=== PATIENT | female | born 1960 | race Caucasian/White ===

== ENCOUNTER → 2019-06-01 09:48 | Outpatient (CLI) | payer OTHER, SELFPAY ==
--- NOTE | ~2019-06-01 | MM_ITS ---
EXAMINATION: MM screening leanna BI w juan HISTORY: Screening mammogram, family history of breast cancer in her sister. TECHNIQUE: Craniocaudal and mediolateral oblique 3-D tomosynthesis images were obtained and synthetic 2-D images were generated. CAD analysis was submitted and interpreted. COMPARISON: 12/02/2017, 11/10/2016, 10/24/2015 BREAST PARENCHYMAL COMPOSITION: The breasts are extremely dense, which lowers the sensitivity of mamm ography. FINDINGS: Scattered benign-appearing calcifications are present. There is no evidence of suspicious m ass, calcification, or architectural distortion to suggest malignancy in either breast. There has bee n no suspicious interval change. IMPRESSION: 1. No mammographic evidence of malignancy. 2. Recommend routine screening mammography in one year. BI-RADS Category 2: Benign finding(s). Reviewed, dictated and finalized at location A. STONE SETTER
== END ==
PROVIDERS: Visit Provider Nurse Practitioner
DX: Z12.31 Encounter for screening mammogram for malignant neoplasm of breast (principal)
CPT/HCPCS: 77063; 77067

== ENCOUNTER 2020-02-29 13:52 | Outpatient (CLI) | payer OTHER, SELFPAY | END 2020-02-29 13:53 | disposition home or self-care (01) | LOC: ANHAUDIO 13:54 | PROVIDERS: Visit Provider Otolaryngology | DX: H69.82 Other specified disorders of Eustachian tube, left ear (principal); H93.8X9 Other specified disorders of ear, unspecified ear | CPT/HCPCS: 92552; 92556; 92567 ==

== ENCOUNTER → 2020-08-22 12:52 | Outpatient (CLI) | payer OTHER, SELFPAY ==
--- NOTE | ~2020-08-22 | MM_ITS ---
EXAMINATION: MM screening leanna BI w juan HISTORY: Screening mammogram, family history of breast cancer in her sister. TECHNIQUE: Craniocaudal and mediolateral oblique 3-D tomosynthesis images were obtained and synthetic 2-D images were generated. CAD analysis was submitted and interpreted. COMPARISON: 06/01/2019, 12/02/2017, 11/10/2016 BREAST PARENCHYMAL COMPOSITION: The breasts are extremely dense, which lowers the sensitivity of mamm ography. FINDINGS: Scattered benign-appearing calcifications are present. There is no evidence of suspicious m ass, calcification, or architectural distortion to suggest malignancy in either breast. There has bee n no suspicious interval change. IMPRESSION: 1. No mammographic evidence of malignancy. 2. Recommend routine screening mammography in one year. BI-RADS Category 2: Benign finding(s). Reviewed, dictated and finalized at location A.
== END ==
PROVIDERS: Visit Provider Nurse Practitioner
DX: Z12.31 Encounter for screening mammogram for malignant neoplasm of breast (principal)
CPT/HCPCS: 77063; 77067

== ENCOUNTER → 2021-04-17 07:41 | Outpatient (CLI) | payer OTHER, SELFPAY ==
--- NOTE | ~2021-04-17 | US_ITS ---
EXAMINATION: US thyroid DATE: 04/17/2021 08:13 INDICATION: Hypothyroidism TECHNIQUE: Multiple ultrasound images of the thyroid were obtained. COMPARISON: None. FINDINGS: The right thyroid lobe measures 5.4 x 1.5 x 1.5 cm. The left thyroid lobe measures 5.7 x 1.2 x 1.3 c m. There is normal echotexture, echogenicity but with diffuse increased vascular flow throughout the thyroid gland. 1.1 cm wider than tall solid hypoechoic nodule with smooth margins and without echogen ic foci in the right thyroid lobe (TI-RADS 4, moderately suspicious , FNA if >=1.5 cm, annual followu p is >=1 cm). Additional 1.2 cm solid mildly hyperechoic nodule along the superficial margin of the h ypoechoic nodule which is also wider than tall with ill-defined margins (TI-RADS 3, mildly suspicious , FNA if >=2.5 cm, annual followup is >=1.5 cm). Similar 3 mm hyperechoic TI RADS 3 nodule at the le ft side of the thyroid isthmus. 1.4 cm TI-RADS 4 predominantly solid hypoechoic wider than tall nodul e with smooth margins and without echogenic foci in the left thyroid lobe. IMPRESSION: 1. Bilateral <1.5 cm TI RADS 4 thyroid nodules for which annual follow-up would be recommended. Reviewed, dictated and finalized at location B. GHTS ANALYST
== END ==
PROVIDERS: PCP Family Medicine Sports Medicine; Visit Provider Nurse Practitioner
DX: E04.1 Nontoxic single thyroid nodule (principal); E03.9 Hypothyroidism, unspecified
CPT/HCPCS: 76536

== ENCOUNTER 2021-10-30 19:59 | Emergency (ER) | payer OTHER, SELFPAY ==
--- NOTE | ~2021-10-30 | CT_ITS ---
EXAMINATION: CT abdomen pelvis wo con DATE: 10/30/2021 21:23 INDICATION: Left flank pain. TECHNIQUE: Computed tomography (CT) of the abdomen and pelvis was performed without intravenous contr ast. Automated exposure control and iterative reconstruction technique were employed. The dose-length product was 163.01 mGy-cm. COMPARISON: CT abdomen and pelvis 06/25/2009 FINDINGS: The visualized portions of the lung bases demonstrate minimal atelectasis. No pleural effus ion. The heart size is normal. No pericardial effusion. There is a 12 mm cyst in the liver. The gallb ladder, spleen, pancreas, adrenal glands, and right kidney are normal. There are two 3 mm stones in l eft kidney. There is mild left hydronephrosis and hydroureter. There is a 3 mm stone in distal left u reter. There are no dilated loops of bowel. The appendix is normal. There is a small sliding hiatal h ernia. There are no pathologically enlarged lymph nodes. There is no free intraperitoneal fluid. Ther e is mild lumbar spondylosis. IMPRESSION: 1. 3 mm stone in distal left ureter with mild left hydronephrosis and hydroureter. 2. Small nonobstructing left kidney stones. Reviewed, dictated and finalized at location A. IMPRESSION: 1. 3 mm stone in distal left ureter with mild left hydronephrosis and hydrouret er. 2. Small nonobstructing left kidney stones.
[2021-10-30 20:26] VITALS: BP 115/66; PULSE 70; RESP 18; TEMP 36.5; O2SAT 99
--- NOTE | 2021-10-30 21:14 | ED.ABDPAIN ---
HPI - Abdominal Pain General Chief Complaint: Abdominal Pain Stated Complaint: left flank pain Time Seen by Provider: 10/30/21 21:04 History of Present Illness HPI narrative: 61-year-old female presents the emergency room for evaluation of left flank pain. Reports pain started suddenly approximately 2 hours prior to arrival. Pain does not radiate. Also complaining of some bladder spasms and dysuria. Has a history of kidney stones x2, both times required lithotripsy. Patient has establish care with Dr. Dukes in the past. Pain is associated with nausea. Related Data Home Medications Medication Instructions Recorded Confirmed cholecalciferol (vitamin D3) 1,250 1,250 mcg PO MONTHLY 01/29/20 09/03/21 mcg (50,000 unit) capsule levothyroxine 50 mcg tablet 50 mcg PO DAILY 01/29/20 09/03/21 Allergies Allergy/AdvReac Type Severity Reaction Status Date / Time Penicillins Allergy Mild Hives / Verified 10/30/21 20:28 Red Face Sulfa (Sulfonamide Allergy Mild Hives / Verified 10/30/21 20:28 Antibiotics) Red Face Review of Systems Review of Systems: CONSTITUTIONAL: Denies fever, chills, or sweats. EYES: Denies visual changes, redness, or discharge. ENT: Denies rhinorrhea, congestion, sore throat, or otalgia. CARDIOVASCULAR: Denies chest pain, palpitations, or edema. RESPIRATORY: Denies cough or dyspnea. GASTROINTESTINAL: Reports left flank pain, nausea GENITOURINARY: Reports dysuria SKIN: Denies rash or itching. MUSCULOSKELETAL: Denies back pain, joint pain, or myalgia. NEUROLOGIC: Denies headache, numbness, dizziness, or weakness. PSYCHIATRIC: Denies anxiety or depression. Exam Narrative: GENERAL: Well-appearing, well-nourished, no physical limitations, and in no acute distress. HEAD: Normocephalic, atraumatic. EYES: Conjunctivae normal, PERRLA and EOMI. CHEST: Clear to auscultation. No respiratory distress. No wheezes rales or rhonchi. No tenderness. HEART: Regular rate and rhythm. No murmur heard. Normal peripheral pulses. ABDOMEN: Soft, nontender, nondistended, normal active bowel sounds. BACK: Left CVA tenderness EXTREMITIES: Normal range of motion. No edema. No clubbing or cyanosis SKIN: Warm, dry, no rash. No noted wounds NEURO: No focal deficits. Alert and oriented x3. MAEW. CN's II-XI intact bilaterally, normal gait PSYCH: Cooperative. Normal mood and affect. Course Vital Signs Vital signs: Vital Signs Temperature 36.5 C 10/30/21 20:26 Pulse Rate 70 10/30/21 20:26 Respiratory Rate 18 10/30/21 20:26 Blood Pressure 115/66 10/30/21 20:26 Pulse Oximetry 99 10/30/21 20:26 Oxygen Delivery Room Air 10/30/21 20:26 Temperature 36.5 C 10/30/21 20:26 Pulse Rate 70 10/30/21 20:26 Respiratory Rate 18 10/30/21 20:26 Blood Pressure 115/66 10/30/21 20:26 Pulse Oximetry 99 10/30/21 20:26 Oxygen Delivery Room Air 10/30/21 20:26 MDM - Abdominal Pain MDM Narrative Medical decision making narrative: 61-year-old presenting with left flank pain likely secondary to an obstructed 3 mm stone in the distal left ureter. Some mild hydronephrosis and hydroureter noted on scan. Patient responded well to a liter of fluid and 30 of Toradol. Leukocytes were found in the urine so we will send patient home with antibiotic coverage. Lab Data Attestation: I reviewed the patient's lab results. Result diagrams: 10/30/21 21:49 10/30/21 22:19 Labs: Lab Results 10/30/21 10/30/21 10/30/21 Range/Units 21:36 21:49 22:19 WBC 8.8 (4.5-10.0) K/mm3 RBC 4.12 L (4.2-5.4) M/mm3 Hgb 12.4 (12.0-15.0) g/dL Hct 38.8 (37.0-47.0) % MCV 94.2 (80-100) fl MCH 30.1 (26-34) pg MCHC 32.0 (32-36) g/dl RDW 14.5 (11.5-14.5) % Plt Count 221 (150-375) k/mm3 MPV 8.8 (7.4-10.4) fl Immature Gran % (Auto) 0.2 (0-0.5) % Neut % (Auto) 85.5 H (45.5-73.1) % Lymph % (Auto) 9.1 L (18.3-44.2) % [place] % (Auto) 4.2 (
[2021-10-30 21:43] LABS: Appearance Urine Clear (Clear); Bilirubin Urine Negative (Negative); Blood Urine 2+ (Negative); Color Urine Yellow (Yellow); Glucose Urine UA Negative (Negative); Ketones Urine Trace mg/dL (Negative); Leukocyte Esterase Ur 1+ LEU/UL (Negative); Nitrate Urine Negative (Negative); Protein Urine Negative (Negative); Specific Grav Ur >= 1.030 (1.001-1.035); Urobilinogen Urine 0.2 mg/dL (<2.0); pH Urine 5.5 (5.0-9.0)
[2021-10-30 21:52] LABS: Bacteria Urine Trace /hpf; Calcium Oxalate Crystals Urine Many /hpf; Mucus Urine Rare /lpf; RBC Urine 21-50 /hpf (0-2); Squamous Epithelial Cell Urine Rare /hpf (Few); WBC Urine 21-30 /hpf
[2021-10-30] MEDS: SODIUM CHLORIDE 0.9% IV 1,000 ML 999 ML IV CONT (21:52)
[2021-10-30] MEDS: KETOROLAC 30 MG/ML VIAL (*BKC) IV PUSH (21:52)
[2021-10-30 21:54] LABS: Add Urine Microscopic? YES
[2021-10-30 21:55] LABS: Basophils Percent Auto 0.5 % (0.2-1.2); Eosinophils Percent Auto 0.5 % (0-4.4); Hematocrit 38.8 % (37.0-47.0); Hemoglobin 12.4 g/dL (12.0-15.0); Immature Granulocyte Absolute 0.02 K/mm3 (0.00-0.031); Immature Granulocyte Percent A 0.2 % (0-0.5); Lymphocytes Percent Auto 9.1 % (18.3-44.2); Mean Corpuscular Hemoglobin 30.1 pg (26-34); Mean Corpuscular Volume 94.2 fl (80-100); Mean Platelet Volume 8.8 fl (7.4-10.4); Monocytes Absolute Auto 0.4 K/mm3 (0.1-0.6); Monocytes Percent Auto 4.2 % (2.6-8.5); Neutrophils Absolute Auto 7.5 K/mm3 (1.3-6.7); Neutrophils Percent Auto 85.5 % (45.5-73.1); Platelet Count Result 221 k/mm3 (150-375); Red Blood Count 4.12 M/mm3 (4.2-5.4); Red Cell Distribution Width 14.5 % (11.5-14.5); White Blood Count 8.8 K/mm3 (4.5-10.0)
[2021-10-30 22:45] LABS: Alanine Aminotransferase 10 U/L (6-35); Albumin Level 3.8 g/dL (3.5-5.1); Alkaline Phosphatase 87 U/L (38-126); Anion Gap 2 mmol/L (8-16); Aspartate Amino Transferase 20 U/L (14-36); Bilirubin,Total 0.3 mg/dL (0.2-1.3); Blood Urea Nitrogen 27 mg/dL (7-17); Calcium 8.9 mg/dL (8.4-10.2); Carbon Dioxide 27 mmol/L (22-30); Chloride 109 mmol/L (98-107); Estimated CRCL calculation 55 ml/min; Estimated Glomerular Filt Rate > 60; Glucose 127 mg/dL (65-110); Potassium 3.6 mmol/L (3.4-5.0); Sodium 138 mmol/L (137-145)
[2021-10-30 23:38] VITALS: BP 148/82; PULSE 88; RESP 20; O2SAT 98
--- NOTE | 2021-11-07 03:51 | PC.NURSE ---
Late entry: Per chart 1000ML NS was started 2104 and was stopped around 2244
== END 2021-10-30 23:40 | disposition home or self-care (01) ==
PROVIDERS: Emergency Provider Nurse Practitioner Family; PCP Family Medicine Sports Medicine
DX: N13.2 Hydronephrosis with renal and ureteral calculous obstruction (principal); Z87.442 Personal history of urinary calculi
CPT/HCPCS: 36415; 74176; 80053; 81001; 85025; 87086; 87088; 96361; 96374; 99284; J1885; J7030

== ENCOUNTER → 2021-11-23 10:13 | Outpatient (CLI) | payer OTHER, SELFPAY ==
--- NOTE | ~2021-11-23 | MM_ITS ---
EXAMINATION: MM screening leanna BI w juan HISTORY: Screening mammogram TECHNIQUE: Craniocaudal and mediolateral oblique 3-D tomosynthesis images were obtained and synthetic 2-D images were generated. CAD analysis was submitted and interpreted. COMPARISON: 08/22/2020, 06/01/2019, 11/28/2017 bilateral screening mammogram examinations BREAST PARENCHYMAL COMPOSITION: The breasts are extremely dense, which lowers the sensitivity of mamm ography. FINDINGS: Numerous bilateral benign-appearing microcalcifications are again present. There is no evid ence of suspicious mass, calcification, or architectural distortion to suggest malignancy in either b reast. There has been no suspicious interval change. IMPRESSION: 1. No mammographic evidence of malignancy. 2. Recommend routine screening mammography in one year. BI-RADS Category 2: Benign finding(s). Reviewed, dictated and finalized at location A.
== END ==
PROVIDERS: PCP Family Medicine Sports Medicine; Visit Provider Nurse Practitioner
DX: Z12.31 Encounter for screening mammogram for malignant neoplasm of breast (principal)
CPT/HCPCS: 77063; 77067

== ENCOUNTER → 2022-06-04 09:10 | Outpatient (CLI) | payer OTHER, SELFPAY ==
--- NOTE | ~2022-06-04 | DEXA_ITS ---
Bone Density Report Name: SHANTE PRESSLEY Age: 61 Sex: Female Ethnicity: White Date of : 1960 Indication: osteopenia; postmenopausal Referring Provider: Pily Barnett Study: Bone densitometry was performed. Exam Date: June 04, 2022 Accession number: [id number] Bone Density: Region BMD T-score Z-score Classification AP Spine (L1-L4) 0.805 -2.2 -0.7 Osteopenia Femoral Neck (Left) 0.715 -1.2 0.1 Osteopenia Total Hip (Left) 0.759 -1.5 -0.5 Osteopenia Femoral Neck (Right) 0.663 -1.7 -0.3 Osteopenia Total Hip (Right) 0.746 -1.6 -0.6 Osteopenia Total Hip Mean 0.753 -1.6 -0.6 Osteopenia World Health Organization criteria for BMD impression classify patients as: Normal (T-score at or above -1.0), Osteopenia (T-score between -1.0 and -2.5), or Osteoporosis (T-score at or below -2.5). 10-year Fracture Risk(1): Major Osteoporotic Fracture 7.3% Hip Fracture 0.8% Reported Risk Factors: [place] (), Neck BMD=0.663, BMI=18.7 (1) FRAX(R) Version 3.08. Fracture probability calculated for an untreated patient. Fracture probability may be lower if the patient has received treatment. Previous Exams: Region Exam Age BMD T-score BMD Change BMD Change Date g/cm2 vs Baseline vs Previous AP Spine(L1-L4) 06/04/2022 61 0.805 -2.2 -0.174* -0.096* 05/28/2011 50 0.900 -1.3 -0.079* -0.079* 07/19/2008 47 0.979 -0.6 Total Hip(Left) 06/04/2022 61 0.759 -1.5 -0.106* -0.103* 05/28/2011 50 0.862 -0.7 -0.003 -0.003 07/19/2008 47 0.865 -0.6 Total Hip(Right) 06/04/2022 61 0.746 -1.6 -0.101* -0.061* 05/28/2011 50 0.807 -1.1 -0.040* -0.040* 07/19/2008 47 0.847 -0.8 *Denotes significance at 95% confidence level, LSC for AP Spine = 0.022 g/cm2, LSC for Total Hip = 0.027 g/cm2 Clinical Information Provided by Patient: Has used the following medications: Vitamin D Patient maximum height was 63.2 Menopause Age: 46 Drinks caffeinated beverages Onset of menses at age 12 Number of children 3 Impression: The patient has low bone mass, based on the Total Spine T-score. The patient has an estimated ten-year risk of hip fracture of 0.8% and an estimated ten-year risk of major fracture of 7.3%, based on the WHO FRAX algorithm. The BMD for the AP Spine(L1-L4) decreased, changing by -0.096 since the last DXA exam. The BMD for the Tot
== END ==
PROVIDERS: PCP Family Medicine; Visit Provider Nurse Practitioner Family
DX: Z78.0 Asymptomatic menopausal state (principal); M85.88 Other specified disorders of bone density and structure, other site; M85.852 Other specified disorders of bone density and structure, left thigh; M85.851 Other specified disorders of bone density and structure, right thigh
CPT/HCPCS: 77080

== ENCOUNTER 2022-06-21 09:41 | Day surgery (SDC) | payer OTHER, SELFPAY ==
[2022-06-09 10:55] VITALS: BMI 19.3
[2022-06-21 10:25] VITALS: BP 102/87; PULSE 85; RESP 20; TEMP 37.7; O2SAT 100
--- NOTE | 2022-06-21 10:32 | WPDANESEPPF ---
Anes - Initial Pre Proc Eval Procedure: Operation Date: 06/21/22 11:30 Proposed Procedures p Screening Colonoscopy - Cornelius Mason MD Date/Time: 06/21/22 10:32 Surgeon: Cornelius Mason MD Pre Op Diagnosis: Neoplasm Screening Patient Data Age: 61 Gender: F Height: 1.57 m Weight: 48 kg Allergies Allergy/AdvReac Type Severity Reaction Status Date / Time Penicillins Allergy Mild Hives / Verified 06/09/22 10:53 Red Face Sulfa (Sulfonamide Allergy Mild Hives / Verified 06/09/22 10:53 Antibiotics) Red Face Home Medications Medication Instructions Recorded Confirmed Type cholecalciferol (vitamin D3) 1,250 1,250 mcg PO .3XM 05/14/22 06/09/22 History mcg (50,000 unit) capsule fluticasone propionate 50 1 spray intranasal .PRN 05/14/22 06/09/22 History mcg/actuation nasal spray,suspension levothyroxine 50 mcg tablet 75 mcg PO DAILY 05/14/22 06/09/22 History multivitamin (Daily Multi-Vitamin 1 tablet PO DAILY 05/14/22 06/09/22 History tablet) Patient hx anesthesia problems: none Family hx anesthesia problems: none Results Review: All pre-operative results and documents have been reviewed as part of the pre-operative evaluation. [facility] Past Medical History Medical History (Updated 05/14/22 @ 09:05 by Pily Barnett NP) History of colon polyps Hypothyroid Thyroid nodule Vitamin D deficiency Surgical History Surgical History (Updated 05/14/22 @ 08:04 by Shante Garnica MA) History of lithotripsy Family History Family History (Updated 05/14/22 @ 08:06 by Shante Garnica MA) Mother Carcinoma of colon Heart disease AFib Father Bone cancer Sibling Breast cancer Social History Social History (Updated 05/14/22 @ 09:13 by Pily Barnett NP) Social History: Delgado is , she has 2 children. She works at a preschool. Smoking status: Never smoker Alcohol intake: never Substance use: never Substance use type: does not use Lack of Transportation: No Lack of Food: Never True Current Housing: I Have Housing Concerned About Future Housing: No Difficulty Paying Gas/Electric Bills: No Difficulty Paying for Meds: No Currently Unemployed: No Education: High School Diploma/GED Difficulty w/ Childcare or Family Care: No Living arrangements: with family Additional living arrangements comments: Occupation/Education: occupation Additional occupation/education comments: full time-[employer] [facility] [employer] [employer] in [place] Gender identity (if verbalized by the patient): Female Sexual Orientation (if Verbalized by the Patient): Straight or Heterosexual Spiritual care concerns: No Agree to blood products: Yes Anes - Eval Final PreProcedure Day of Procedure 06/21/22 10:32 Patient weight: normal Heart: regular rate and rhythm Lungs: clear to auscultation and normal air movement Airway: Mallampati scale class II Neurological: alert and oriented Last oral intake: >/= 8 hours ASA classification: II Emergent: no Anesthetic plan: proceed Anesthesia type and monitoring: general GIVS Results Review: All pre-operative results and documents have been reviewed as part of the pre-operative evaluation. Informed Consent: The patient's anesthetic plan and its attendant risks and benefits were discussed with the patient/family/POA. Questions were solicited and answers provided to the satisfaction of the patient/family/POA.
--- NOTE | 2022-06-21 10:45 | PM.HPGS ---
History of Present Illness History of Present Illness Consent: Risks, benefits, and alternatives have been discussed and questions answered. Patient agrees to proceed with procedure. Chief complaint: Neoplasm Screening Narrative: Delgado Cano is a 61 year old female Presents for screening colonoscopy. Patient's current weight appetite and bowel movements are normal. Patient denies abdominal pain. She has had no bleeding. Family history is significant her mother had colon cancer. Her sister had colon polyps. Patient herself has had colon polyps. Most recent colonoscopy was 2018. Patient presents today for neoplasia screening. Review of Systems Review of Systems: Review of systems noncontributory. [facility] Past Medical History Medical History (Updated 06/21/22 @ 10:47 by Cornelius Mason MD) History of colon polyps Hypothyroid Thyroid nodule Vitamin D deficiency Surgical History Surgical History (Updated 05/14/22 @ 08:04 by Shante Garnica MA) History of lithotripsy Family History Family History (Updated 05/14/22 @ 08:06 by Shante Garnica MA) Mother Carcinoma of colon Heart disease AFib Father Bone cancer Sibling Breast cancer Social History Social History (Updated 05/14/22 @ 09:13 by Pily Barnett NP) Social History: Delgado is , she has 2 children. She works at a preschool. 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 [place] Gender identity (if verbalized by the patient): Female Sexual Orientation (if Verbalized by the Patient): Straight or Heterosexual Spiritual care concerns: No Agree to blood products: Yes Meds Home Medications and Allergies Home Medications Medication Instructions Recorded Confirmed Type cholecalciferol (vitamin D3) 1,250 1,250 mcg PO .3XM 05/14/22 06/09/22 History mcg (50,000 unit) capsule fluticasone propionate 50 1 spray intranasal .PRN 05/14/22 06/09/22 History mcg/actuation nasal spray,suspension levothyroxine 50 mcg tablet 75 mcg PO DAILY 05/14/22 06/09/22 History multivitamin (Daily Multi-Vitamin 1 tablet PO DAILY 05/14/22 06/09/22 History tablet) Allergies Allergy/AdvReac Type Severity Reaction Status Date / Time Penicillins Allergy Mild Hives / Verified 06/21/22 10:44 Red Face Sulfa (Sulfonamide Allergy Mild Hives / Verified 06/21/22 10:44 Antibiotics) Red Face Exam Narrative: Physical exam reveals patient to be alert. Vital signs stable. HEENT exam is unremarkable. Patient is anicteric. Lungs are clear to auscultation and percussion. Heart is without murmur or extra sounds. Abdomen bowel sounds are present soft nontender with no organomegaly. Digital external rectal exam is normal. Assessment and Plan Assessment and plan (1) Family hx of colon cancer: Code(s): Z80.0 - Family history of malignant neoplasm of digestive organs Status: Acute Assessment and Plan: Patient's mother has had colon cancer. Her sister has had colon polyps. Plan for surveillance colonoscopy at least every 5 years. (2) History of colon polyps: Code(s): Z86.010 - Personal history of colonic polyps Status: Acute Assessment and Plan: Patient has a prior history of colon polyps herself. Most recently 2018. Plan for surveillance colonoscopy see at least every 5 years.
[2022-06-21] MEDS: LACTATED RINGERS 1,000 ML 150 ML IV CONT (10:51)
[2022-06-21 12:39] VITALS: BP 86/52; PULSE 68; RESP 14; O2SAT 99
[2022-06-21 12:49] VITALS: BP 112/66; PULSE 70; RESP 16; O2SAT 100
[2022-06-21 12:59] VITALS: BP 100/61; PULSE 68; RESP 16; O2SAT 99
--- NOTE | 2022-06-21 13:28 | SUR.PHASEII ---
PT AWAKE AND ALERT. DENIES PAIN. STATES READY TO GO HOME.
--- NOTE | 2022-06-21 13:39 | WPDANESPN ---
Anes - Prog Note Post-Op Date/Time: 06/21/22 13:39 Cardiovascular status: normal Respiratory status: normal Airway patency: baseline Mental status: baseline Post-Op hydration status: normal Vital Signs: Last Vital Signs Temp 37.7 C H 06/21/22 10:25 Pulse 68 06/21/22 12:59 Resp 16 06/21/22 12:59 BP 100/61 06/21/22 12:59 Pulse Ox 99 06/21/22 12:59 O2 Del Method Room Air 06/21/22 12:59 Pain Score (VAS): 0 I/O: Intake & Output 06/20/22 06/21/22 06/21/22 23:59 07:59 15:59 Intake Total 500 Balance 500 Post-procedural complaints: none Patient Feedback: Patient satisfied with anesthetic care.
== END 2022-06-21 13:30 | disposition home or self-care (01) ==
PROVIDERS: PCP Family Medicine; Visit Provider Internal Medicine Gastroenterology
PROC: 0DJD8ZZ Inspection of Lower Intestinal Tract, Via Natural or Artificial Opening Endoscopic (ICD-10-PCS; CPT 45378; principal; 2022-06-21 11:30)
DX: Z86.010 Personal history of colon polyps (principal)
CPT/HCPCS: 45378

== ENCOUNTER → 2022-06-25 07:50 | Outpatient (CLI) | payer OTHER, SELFPAY ==
--- NOTE | ~2022-06-25 | US_ITS ---
EXAMINATION: US thyroid DATE: 06/25/2022 08:15 INDICATION: Nontoxic single thyroid nodule TECHNIQUE: Multiple ultrasound images of the thyroid were obtained. COMPARISON: 04/17/2021 FINDINGS: The right thyroid lobe measures 6.2 x 1.4 x 1.7 cm. The left thyroid lobe measures 6.4 x 1.3 x 1.4 c m. Again seen are a few wider than tall solid iso to slightly hyperechoic nodules with smooth well-d efined margins and without internal echogenic foci (TI-RADS 3, mildly suspicious , FNA if >=2.5 cm, a nnual followup is >=1.5 cm), two in the inferior right thyroid lobe measuring 1.5 cm and 0.8 cm, one in the mid right thyroid measuring 5 mm and one measuring 5 mm at the left side of the thyroid isthmu s. There is also a wider than tall predominately solid hypoechoic nodule with smooth margins and with out echogenic foci measuring 1.3 cm the inferior left thyroid lobe might T.I-RADS 4. There is normal echotexture, echogenicity and vascular flow throughout the thyroid gland. IMPRESSION: 1. No significant interval change in a <1.5 cm TI-RADS 4 and a few 1.5 cm or smaller TI-RADS 3 thyroi d nodules for which annual ultrasound follow-up would be recommended. Reviewed, dictated and finalized at location B. IMPRESSION: 1. No significant interval change in a <1.5 cm TI-RADS 4 and a few 1.5 cm or sm aller TI-RADS 3 thyroid nodules for which annual ultrasound follow-up would be recommended.
== END ==
PROVIDERS: PCP Family Medicine; Visit Provider Internal Medicine Endocrinology, Diabetes & Metabolism
DX: E04.2 Nontoxic multinodular goiter (principal)
CPT/HCPCS: 76536

== ENCOUNTER → 2023-03-11 07:14 | Outpatient (CLI) | payer OTHER, SELFPAY ==
--- NOTE | ~2023-03-11 | MM_ITS ---
EXAMINATION: MM screening leanna BI w juan HISTORY: Screening mammogram TECHNIQUE: Craniocaudal and mediolateral oblique 3-D tomosynthesis images were obtained and synthetic 2-D images were generated. CAD analysis was submitted and interpreted. COMPARISON: 11/23/2021, 08/22/2020 bilateral screening mammogram examinations BREAST PARENCHYMAL COMPOSITION: The breasts are extremely dense, which lowers the sensitivity of mamm ography. FINDINGS: Numerous benign appearing calcifications are scattered in the breasts. There is no evidence of suspicious mass, calcification, or architectural distortion to suggest malignancy in either breas t. There has been no suspicious interval change. IMPRESSION: 1. Benign calcifications. No mammographic evidence of malignancy. 2. Recommend routine screening mammography in one year. Ultrasound may be of supplemental benefit in the setting of extremely dense fibroglandular stroma. BI-RADS Category 2: Benign finding(s). Reviewed, dictated and finalized at location A. RLY CAREGIVER IMPRESSION: 1. Benign calcifications. No mammographic evidence of malignancy. 2. Recommend routine screening mammography in one year. Ultrasound may be of rod pplemental benefit in the setting of extremely dense fibroglandular stroma. BI-RADS Category 2: Benign finding(s).
== END ==
PROVIDERS: PCP Family Medicine; Visit Provider Obstetrics & Gynecology Gynecology
DX: Z12.31 Encounter for screening mammogram for malignant neoplasm of breast (principal)
CPT/HCPCS: 77063; 77067

== ENCOUNTER 2024-08-30 14:01 | Outpatient (CLI) | payer OTHER, SELFPAY ==
--- NOTE | ~2024-08-30 | MM_ITS ---
EXAMINATION: MM screening leanna BI w juan HISTORY: Screening TECHNIQUE: Craniocaudal and mediolateral oblique 3-D tomosynthesis images were obtained and synthetic 2-D images were generated. CAD analysis was submitted and interpreted. COMPARISON: Comparison to multiple prior studies sequentially, with oldest reviewed study dated 05/2016. BREAST PARENCHYMAL COMPOSITION: Dense: The breasts are extremely dense, which lowers the sensitivity of mammography. FINDINGS: There is no evidence of suspicious mass, calcification, or architectural distortion to sugg est malignancy in either breast. There has been no suspicious interval change. IMPRESSION: 1. No mammographic evidence of malignancy. 2. Recommend routine screening mammography in one year. BI-RADS Category 1: Negative Reviewed, dictated and finalized at location B.
== END 2024-08-30 14:02 | disposition home or self-care (01) ==
LOC: MICIMG 14:02
PROVIDERS: PCP Nurse Practitioner Family; Visit Provider Nurse Practitioner
DX: Z12.31 Encounter for screening mammogram for malignant neoplasm of breast (principal)
CPT/HCPCS: 77063; 77067